=== PATIENT | male | born 1960 | race Caucasian/White ===

== ENCOUNTER 2017-06-06 09:36 | Day surgery (SDC) | payer OTHER ==
[2017-06-05 10:10] VITALS: BMI 41.5
[2017-06-06] MEDS ORDERED: BUPIVACAINE HCL/PF 2.5 MG/ML - 30 ML VIAL IJ ONE (12:59)
[2017-06-06] MEDS ORDERED: BUPIVACAINE HCL/PF 0.5% (5MG/ML) 10 ML VIAL ONE (13:22)
[2017-06-06] MEDS ORDERED: MIDAZOLAM HCL 2 MG/2 ML SINGLE DOSE VIAL ONE ×2 (13:30→13:38)
[2017-06-06] MEDS ORDERED: ceFAZolin SODIUM 1 GM VIAL ONE (13:31)
[2017-06-06] MEDS ORDERED: BUPIVACAINE HCL/PF 0.25% (2.5MG/ML) 10 ML VIAL IJ ONE (13:53)
[2017-06-06 15:16] VITALS: TEMP 97.9
[2017-06-06 15:41] VITALS: BP 114/68; PULSE 52
--- NOTE | 2017-06-08 23:54 | OP ---
DATE OF OPERATION: 06/06/2017 SURGEON: Hugo Cuenca MD OCCUPATIONAL THERAPY ASSIST: LITA Jiménez PREOPERATIVE DIAGNOSIS: 1. Left knee mediolateral meniscal tear. 2. Left knee cartilage injury. 3. Left knee synovitis. POSTOPERATIVE DIAGNOSIS: 1. Left knee mediolateral meniscal tear. 2. Left knee cartilage injury. 3. Left knee synovitis. PROCEDURE: 1. Left knee arthroscopy and partial meniscectomy of the mediolateral meniscus. 2. Left knee arthroscopy with chondroplasty and abrasioplasty. 3. Left knee arthroscopy with synovectomy, CPT code 13244, 43541, 92315. FINDINGS: 1. Medial meniscus body and posterior horn tear. 2. Lateral meniscus posterior horn tear. 3. Synovitis of the patellofemoral and mediolateral notch area. 4. Antegrade 1-2 cartilage injury of the medial femoral condyle and tibial plateau. 5. ACL and PCL intact. 6. Diffuse grade 2-3 cartilage injury of the lateral femoral condyle with 1-2 changes lateral tibial plateau. 7. Central grade 1-2 cartilage injury of the patella with grade 2-4 changes of patellofemoral trochlea. PROCEDURE: Informed consent was obtained. The patient came to the operating room, where the lower extremity was prepped and draped in a sterile fashion. A tourniquet was placed on the upper thigh, but not inflated. Using standard arthroscopic technique, a lateral incision and portal was made to allow for introduction of the camera into the suprapatellar bursa. This was then taken to the medial joint line, where under direct visualization, a medial incision and portal was made. Excessive synovium noted in the medial, lateral and patellofemoral and notch area was removed by an up-biter, shaver and Bovie cautery. This was found to bring in inflammatory tissue into the joint surface, a source of pain and dysfunction. Probing of the medial and lateral meniscus found tears, as described in the findings. These were removed with the up-biter and shaver and taken back to a stable rim. Grade 2 to 3 degenerative changes were treated with a chondroplasty, removing all flaking surfaces with low-setting Bovie along the periphery to prevent further flaking. Grade 4 changes, as noted, were treated with an abrasioplasty, creating a bleeding surface at the bone/cartilage interface. Aggressive debridement with shaver/yesenia created bleeding surface. Micro fracture also done when indicated in findings All areas of the knee were once again reexamined. The knee was then drained and a single suture was placed in all portals. A sterile dressing was placed and the patient was transferred to the recovery room without complication. HUGO CUENCA M.D. [id number]
== END 2017-06-06 16:11 | disposition home or self-care (01) ==
LOC: FASU 09:36
PROVIDERS: ATTEND Orthopaedic Surgery
PROC: 0SBD4ZZ Excision of Left Knee Joint, Percutaneous Endoscopic Approach (ICD-10-PCS; 2017-06-06)
PROC: 0SBD4ZZ Excision of Left Knee Joint, Percutaneous Endoscopic Approach (ICD-10-PCS; 2017-06-06)
PROC: 0SBD4ZZ Excision of Left Knee Joint, Percutaneous Endoscopic Approach (ICD-10-PCS; principal; 2017-06-06 13:47)
DX: S83.242A Other tear of medial meniscus, current injury, left knee, initial encounter (principal); S83.282A Other tear of lateral meniscus, current injury, left knee, initial encounter; S83.8X2A Sprain of other specified parts of left knee, initial encounter; M65.862 Other synovitis and tenosynovitis, left lower leg; X58.XXXA Exposure to other specified factors, initial encounter; Y93.9 Activity, unspecified; Y92.9 Unspecified place or not applicable
CPT/HCPCS: 82962; 94760